=== PATIENT | female | born 1975 | race Caucasian/White ===

== ENCOUNTER 2018-10-15 17:53 | Emergency (ER) | payer MEDICAID ==
[~2018-10-15] VITALS: Ht 170.2 cm; Wt 65.0 kg
[2018-10-15] MEDS ORDERED: PARO12.519 PO (17:59)
[2018-10-15] MEDS ORDERED: MORPHINE SULFATE 4 MG/ML CPJ (NOT FOR IM USE) IV ONE (19:30)
[2018-10-15] MEDS ORDERED: KETOROLAC 30MG/ML VIAL IM ONE (19:30)
[2018-10-15] MEDS ORDERED: MORPHINE SULFATE 10 MG/ML CPJ IV NR (19:49)
[2018-10-15 20:35] VITALS: BP 115/75
== END 2018-10-15 20:49 | disposition home or self-care (01) ==
LOC: ER 17:53
DX: G50.0 Trigeminal neuralgia (principal); I10 Essential (primary) hypertension; G43.909 Migraine, unspecified, not intractable, without status migrainosus; F32.9 Major depressive disorder, single episode, unspecified; Z86.19 Personal history of other infectious and parasitic diseases
CPT/HCPCS: 96372; 96374; 99283; J1885; J2270

== ENCOUNTER 2018-10-24 12:55 | Inpatient (IN) | payer MEDICAID, OTHER ==
[~2018-10-24] VITALS: Ht 167.6 cm; Wt 71.7 kg
[~2018-10-24 12:55] MED LIST: PARO12.519 PO
[2018-10-24] MEDS ORDERED: SODIUM CHLORIDE 0.9% 1,000 ML IV ONE (16:33)
[2018-10-24] MEDS ORDERED: ONDANSETRON HCL 4MG/2ML INJ IV STA (16:33)
[2018-10-24] MEDS ORDERED: KETOROLAC 30MG/ML VIAL IV ONE (16:45)
[2018-10-24 17:07] LABS: CLARITY URINE CLEAR (CLEAR); COLOR URINE YELLOW (YELLOW); KETONES URINE TRACE (NEGATIVE); LEUKOCYTE ESTERASE URINE NEGATIVE (NEGATIVE); NITRITE URINE NEGATIVE (NEGATIVE); OCCULT BLOOD URINE NEGATIVE (NEGATIVE); PROTEIN URINE NEGATIVE (NEGATIVE); SPECIFIC GRAVITY URINE 1.029 (1.005-1.030)
[2018-10-24 17:12] LABS: CHLORIDE 106 mEq/L (98-107)
[2018-10-24 17:14] LABS: BASOPHILS % 0.8 % (0.0-2.0); EOSINOPHILS % 4.1 % (0.0-5.0); HEMATOCRIT. 41.9 % (36.0-48.0); HEMOGLOBIN. 14.2 g/dL (12.0-16.0); LYMPHOCYTES % 33.5 % (20.0-50.0); MEAN CORPUSCULAR HEMOGLOBIN 30.6 pg (28.0-32.0); MEAN CORPUSCULAR VOLUME 90.1 fL (81.0-99.0); MEAN PLATELET VOLUME 8.5 fl (7.4-10.4); MONOCYTES % 5.3 % (2.0-8.0); NEUTROPHILS % 56.3 % (40.0-76.0); PLATELET 236 x1000/uL (130-400); RED BLOOD CELL COUNT 4.65 mill/uL (4.2-5.4); RED CELL DISTRIBUTION WIDTH 13.6 % (11.6-14.6)
[2018-10-24 17:42] LABS: PARTIAL THROMBOPLASTIN TIME 26.7 sec (23.4-31.0); PROTHROMBIN TIME 10.4 sec (9.1-11.1)
[2018-10-24 18:01] LABS: HCG SCREEN NEGATIVE
[2018-10-24] MEDS ORDERED: ASPIRIN 325MG EC TABLET PO ONE (19:15)
[2018-10-24 21:50] VITALS: BP 116/60
[2018-10-24 22:06] VITALS: BP 116/60
[2018-10-24] MEDS ORDERED: SODIUM CHLORIDE 0.45% 1,000 ML IV SCH (23:36)
[2018-10-24] MEDS ORDERED: ONDANSETRON HCL 4MG/2ML INJ IV PRN (23:45)
[2018-10-24] MEDS ORDERED: DIPHENHYDRAMINE 50MG/ML VIAL IV PRN (23:45)
[2018-10-24] MEDS ORDERED: NA PHOS,M-B/NA PHOS,DI-BA ENEMA 118ML PR PRN (23:45)
[2018-10-24] MEDS ORDERED: DOCUSATE SODIUM 100MG CAPSULE PO PRN (23:45)
[2018-10-24] MEDS ORDERED: MAGNESIUM/ALUMINUM HYDROXIDE/SIMETHICONE 30ML UDC PO PRN (23:45)
[2018-10-24] MEDS ORDERED: CLONIDINE 0.1MG TABLET PO PRN (23:45)
[2018-10-24] MEDS ORDERED: IPRATROPIUM/ALBUTEROL 0.5-3(2.5)MG/3ML NEB INH PRN (23:45)
[2018-10-24] MEDS ORDERED: GUAIFENESIN 200MG/10ML SUGAR FREE UDC PO PRN (23:45)
[2018-10-25] VITALS (7 sets, daily range): BP systolic 98–115; BP diastolic 52–71
[2018-10-25] MEDS ORDERED: HYDR50CA5 MT (00:10)
[2018-10-25] MEDS ORDERED: CARB200T6 MT (00:10)
[2018-10-25] MEDS ORDERED: MIRT-91 MT (00:10)
[2018-10-25] MEDS: MORPHINE SULFATE 10MG/5ML ORAL SOLN UDC PO PRN ×4 (01:19→21:18)
[2018-10-25] MEDS: METHYLPREDNISOLONE SOD SUCC 40 MG/ML VIAL IV SCH ×3 (01:25→15:51)
[2018-10-25] MEDS: METRONIDAZOLE 500 MG PREMIX 100 ML IV SCH ×2 (01:58→10:43)
[2018-10-25] MEDS: ALBUTEROL (0.083%) 2.5MG/3ML NEB HHN SCH ×4 (05:10→20:41)
[2018-10-25] MEDS: SODIUM CHLORIDE 0.9% INJ 3ML FLUSH IVF SCH ×2 (05:47→14:06)
[2018-10-25 06:40] LABS: CHLORIDE 108 mEq/L (98-107)
[2018-10-25 06:42] LABS: BASOPHILS % 0.6 % (0.0-2.0); HEMATOCRIT. 37.8 % (36.0-48.0); HEMOGLOBIN. 12.9 g/dL (12.0-16.0); LYMPHOCYTES % 18.2 % (20.0-50.0); MEAN CORPUSCULAR HEMOGLOBIN 30.4 pg (28.0-32.0); MEAN CORPUSCULAR VOLUME 89.3 fL (81.0-99.0); MONOCYTES % 2.8 % (2.0-8.0); NEUTROPHILS % 76.4 % (40.0-76.0); PLATELET 210 x1000/uL (130-400); RED BLOOD CELL COUNT 4.24 mill/uL (4.2-5.4); RED CELL DISTRIBUTION WIDTH 13.5 % (11.6-14.6)
[2018-10-25 06:48] LABS: HDL CHOLESTEROL 56 mg/dL (40-59)
[2018-10-25 06:49] LABS: LDL CHOLESTEROL 92 mg/dL (5-100)
[2018-10-25] MEDS ORDERED: AMITRIPTYLINE 25MG TABLET PO SCH (08:00)
[2018-10-25 08:27] LABS: CLARITY URINE CLEAR (CLEAR); COLOR URINE YELLOW (YELLOW); KETONES URINE NEGATIVE (NEGATIVE); LEUKOCYTE ESTERASE URINE NEGATIVE (NEGATIVE); NITRITE URINE NEGATIVE (NEGATIVE); OCCULT BLOOD URINE NEGATIVE (NEGATIVE); PROTEIN URINE NEGATIVE (NEGATIVE); SPECIFIC GRAVITY URINE 1.004 (1.005-1.030); UROBILINOGEN URINE 0.2 E.U./dL (0.2-1.0)
[2018-10-25 08:57] LABS: *AMPHETAMINES SCREEN URINE NEGATIVE (NEGATIVE)
[2018-10-25 08:58] LABS: *BENZODIAZEPINES SCREEN URINE NEGATIVE (NEGATIVE)
[2018-10-25 09:00] LABS: METHADONE URINE SCREEN NEGATIVE (NEGATIVE)
[2018-10-25 09:05] LABS: *BARBITURATES SCREEN URINE NEGATIVE (NEGATIVE)
[2018-10-25 09:07] LABS: *COCAINE SCREEN URINE NEGATIVE (NEGATIVE); CANNABINOID URINE SCREEN NEGATIVE (NEGATIVE); PHENCYCLIDINE URINE SCREEN NEGATIVE (NEGATIVE)
[2018-10-25 09:13] LABS: OPIATES URINE SCREEN PRESUMTIVE POSITIVE (NEGATIVE)
[2018-10-25] MEDS ORDERED: ALBU6.7H INH (13:30)
[2018-10-25] MEDS ORDERED: P50 MT (13:31)
[2018-10-25] MEDS ORDERED: METRONIDAZOLE 500 MG PREMIX 100 ML IV SCH (18:00)
[2018-10-25] MEDS ORDERED: LEVOFLOXACIN 500MG PREMIX 100 ML IV SCH (21:00)
[2018-10-25] MEDS: PANTOPRAZOLE 40MG DR TABLET PO SCH ×2 (21:12→21:13)
[2018-10-25] MEDS: DIPHENHYDRAMINE 25MG CAPSULE PO PRN (21:17)
[2018-10-26] VITALS: BP 106/61
[2018-10-26] MEDS ORDERED: LEVOFLOXACIN 500MG PREMIX 100 ML IV SCH (01:00)
[2018-10-26 04:00] VITALS: BP 107/54
[2018-10-26] MEDS: ALBUTEROL (0.083%) 2.5MG/3ML NEB HHN SCH ×4 (04:30→20:36)
[2018-10-26 08:00] VITALS: BP 107/70
[2018-10-26 11:58] VITALS: BP 108/67
[2018-10-26] MEDS ORDERED: AMITRIPTYLINE 25MG TABLET PO SCH (13:45)
[2018-10-26] MEDS: PREDNISONE 20MG TABLET PO SCH (15:24)
[2018-10-26 15:36] VITALS: BP 107/65
[2018-10-26 16:50] LABS: BASOPHILS % 0.5 % (0.0-2.0); EOSINOPHILS % 1.5 % (0.0-5.0); HEMATOCRIT. 38.3 % (36.0-48.0); HEMOGLOBIN. 12.8 g/dL (12.0-16.0); LYMPHOCYTES % 35.3 % (20.0-50.0); MEAN CORPUSCULAR HEMOGLOBIN 30.3 pg (28.0-32.0); MEAN CORPUSCULAR VOLUME 91.1 fL (81.0-99.0); MEAN PLATELET VOLUME 8.9 fl (7.4-10.4); MONOCYTES % 5.5 % (2.0-8.0); NEUTROPHILS % 57.2 % (40.0-76.0); PLATELET 215 x1000/uL (130-400); RED BLOOD CELL COUNT 4.21 mill/uL (4.2-5.4); RED CELL DISTRIBUTION WIDTH 13.6 % (11.6-14.6)
[2018-10-26 16:51] LABS: CHLORIDE 106 mEq/L (98-107)
[2018-10-26] MEDS: FAMOTIDINE 20MG TABLET PO SCH (20:53)
[2018-10-27] VITALS: BP 118/61
[2018-10-27] MEDS: ALBUTEROL (0.083%) 2.5MG/3ML NEB HHN SCH ×4 (00:32→20:39)
[2018-10-27] MEDS: DIPHENHYDRAMINE 25MG CAPSULE PO PRN ×2 (00:47→23:57)
[2018-10-27 04:00] VITALS: BP 110/50
[2018-10-27 08:00] VITALS: BP 114/78
[2018-10-27] MEDS: FAMOTIDINE 20MG TABLET PO SCH ×2 (09:22→20:45)
[2018-10-27] MEDS: PREDNISONE 20MG TABLET PO SCH (09:22)
[2018-10-27] MEDS: AMITRIPTYLINE 25MG TABLET PO SCH (09:22)
[2018-10-27 12:00] VITALS: BP 115/69
[2018-10-27 16:00] VITALS: BP 128/69
[2018-10-27 20:00] VITALS: BP 103/64
[2018-10-28] VITALS: BP 116/72
[2018-10-28] MEDS: ALBUTEROL (0.083%) 2.5MG/3ML NEB HHN SCH ×2 (01:10→09:23)
[2018-10-28 04:00] VITALS: BP 103/57
[2018-10-28 08:00] VITALS: BP 103/58
[2018-10-28] MEDS: AMITRIPTYLINE 25MG TABLET PO SCH (08:19)
[2018-10-28] MEDS: FAMOTIDINE 20MG TABLET PO SCH (08:20)
[2018-10-28] MEDS: PREDNISONE 20MG TABLET PO SCH (08:20)
[2018-10-28 11:18] VITALS: BP 103/55
[2018-10-28 12:00] VITALS: BP 137/92
== END 2018-10-28 13:50 | disposition home or self-care (01) | DRG 141 ==
LOC: ER 14:37 → 5WST 19:36 → ENRESERV 20:41
PROVIDERS: ADMIT Family Medicine; ATTEND Family Medicine
DX: J45.901 Unspecified asthma with (acute) exacerbation (principal); B19.20 Unspecified viral hepatitis C without hepatic coma; F19.10 Other psychoactive substance abuse, uncomplicated; E04.9 Nontoxic goiter, unspecified; G50.0 Trigeminal neuralgia; Z88.9 Allergy status to unspecified drugs, medicaments and biological substances; Z88.8 Allergy status to other drugs, medicaments and biological substances; Z79.899 Other long term (current) drug therapy
CPT/HCPCS: 36415; 71045; 74176; 76705; 80061; 80156; 80305; 82962; 83880; 84443; 84484; 84703; 93005; 93306; 94640; 96361; 96374; 96375; 99285; A6261; J1885; J1956; J2405; J2920; J3490; J7030; J7512; J7611; J7620; Q0163